=== PATIENT | female | born 1945 | race Caucasian/White ===

== ENCOUNTER 2019-05-19 19:31 | Observation (INO) | payer MEDICARE, SELFPAY ==
--- NOTE | ~2019-05-19 | CT_ITS ---
EXAMINATION: CT lumbar spine w con DATE: 05/21/2019 11:57 INDICATION: Back pain. Lower extremity weakness. TECHNIQUE: Computed tomography (CT) of the lumbar spine was performed with 100 mL Omnipaque 350 intra venous contrast. Automated exposure control and iterative reconstruction technique were employed. The dose-length product was 1073.47 mGy-cm. COMPARISON: CT lumbar spine 11/06/2018 FINDINGS: There are cysts in the kidneys measuring up to 3.6 cm on the left. There are epidural elect rodes in thoracic spine. There is 34 degrees dextroscoliosis of lumbar spine. There is bone cement in the bilateral sacral ala. There is 6 mm anterolisthesis of L5 on S1 and 3 mm anterolisthesis of L4 o n L5. There are changes of anterior and posterior fusion procedures at L5-S1 with interbody devices a nd pedicle screws. There are Schmorl's nodes at multiple levels. There is severely decreased disc hei ght at L1-L2, L3-L4, and L4-L5 and moderately decreased disc height at L2-L3. There are old fractures of the right 12th rib and right L2 and L3 transverse processes. The following disc levels are specif ically discussed: L1-L2: The disc is bulging. There is mild bilateral facet joint osteoarthritis. There is moderate rig ht and mild left neural foraminal stenosis. There is mild central canal stenosis. L2-L3: The disc is bulging. There is mild right and severe left facet joint osteoarthritis. There is mild right and moderate left neural foraminal stenosis. There is mild central canal stenosis. L3-L4: The disc is bulging. There is severe bilateral facet joint osteoarthritis. There is mild right and moderate left neural foraminal stenosis. There is mild central canal stenosis. L4-L5: The disc is bulging. There is severe bilateral facet joint osteoarthritis. There is moderate r ight and mild left neural foraminal stenosis. There is mild central canal stenosis. L5-S1: There is no facet joint hypertrophy. There is mild bilateral neural foraminal stenosis. There is no central canal stenosis. There are changes of L5 laminectomy. IMPRESSION: 1. Severe lumbar spondylosis. 2. Anterior and posterior fusion procedures at L5-S1. 3. Lumbar dextroscoliosis. Reviewed, dictated and finalized at location A. E VARIATION EQUIPMENT TENDER
--- NOTE | ~2019-05-19 | XR_ITS ---
XR chest 1V portable 05/19/2019 20:16 Indication: Cough. Midsternal chest pain. Procedure: AP view of the chest Comparison: 10/03/2018 Findings: Cardiomegaly. Irregular linear radiodensities are identified in both lungs, likely embolize d methyl methacrylate. No focal air space disease, pulmonary edema, pleural effusion or suspected pne umothorax. Spinal stimulator leads overlie the mid thorax. Impression: 1: No acute cardiopulmonary disease. Reviewed, dictated and finalized at location A. S LAYER Impression: 1: No acute cardiopulmonary disease.
--- NOTE | ~2019-05-19 | CT_ITS ---
EXAMINATION: CTA brain DATE: 05/21/2019 11:57 INDICATION: Cerebrovascular accident. TECHNIQUE: Computed tomographic angiography (CTA) of the head was performed without and with 100 mL O mnipaque-350 intravenous contrast. Automated exposure control and iterative reconstruction technique were employed. The dose-length product was 996.76 mGy-cm. Maximum intensity projection 3D reconstruc tions were created. Volume-rendered 3D reconstructions of the intracranial arteries were created by ld hidalgo technologist on a separate workstation. COMPARISON: Head CT 05/19/2019, 10/21/2018 FINDINGS: There are scattered areas of low attenuation in the cerebral white matter. There is an infa rct in the right thalamus. There is no intracranial hemorrhage or abnormal mass lesion. The ventricle s are normal in size. The paranasal sinuses are clear. There are likely changes of ocular lens replac ement surgeries. The mastoid air cells are normal. Left vertebral artery is dominant. There is no sig nificant stenosis of the basilar artery or posterior cerebral arteries. The posterior communicating a rteries are normal. There is no significant stenosis of the intracranial internal carotid arteries or anterior or middle cerebral arteries. Anterior communicating artery is normal. There is no aneurysm. IMPRESSION: 1. Age-indeterminate infarct in the right thalamus. 2. Moderate nonspecific cerebral white matter disease, which likely represents chronic small vessel i schemic disease. 3. No aneurysm or significant intracranial internal stenosis. Reviewed, dictated and finalized at location A. RLOCKING PAVEMENT INSTALLER IMPRESSION: 1. Age-indeterminate infarct in the right thalamus. 2. Moderate nonspecific cerebral white matter disease, which likely represents chronic small vessel ischemic disease. 3. No aneurysm or significant intracranial internal stenosis.
--- NOTE | ~2019-05-19 | CT_ITS ---
EXAMINATION: CT brain wo con DATE: 05/19/2019 20:05 INDICATION: Altered mental status TECHNIQUE: Computed tomography (CT) of the head was performed without intravenous contrast. The dose- length product was 605.33 mGy-cm. The mA was adjusted according to patient size. Iterative reconstruc tion technique was employed. COMPARISON: CT dated 10/21/2018 FINDINGS: Mild atrophy. There are scattered mild periventricular and subcortical white matter changes , most likely related to small vessel ischemic disease (microangiopathy). There is intracranial ather osclerosis. No ventriculomegaly or midline shift. Basilar cisterns are patent. No acute intracranial hemorrhage, infarction, mass or mass effect. There are changes of bilateral ocular lens surgery. IMPRESSION: 1. No acute intracranial abnormality. 2: Chronic age-related findings. Reviewed, dictated and finalized at location A. ENT PRESSER
--- NOTE | ~2019-05-19 | US_ITS ---
EXAMINATION: US carotid duplex BI DATE: 05/20/2019 08:30 INDICATION: Peripheral vascular disease. Weakness. TECHNIQUE: Grayscale, color Doppler, and pulsed Doppler images of the cervical carotid arteries were obtained. The degree of vessel stenosis is placed in one of the following categories: normal, <50%, 5 0-69%, >=70% but less than near-occlusion, near-occlusion, or total occlusion. Note that percent sten osis relative to normal distal artery lumen diameter is indirectly measured from velocity measurement s as described by Richi, et al. Radiology 2003; 229:340-346. Notes: Normal: Peak systolic velocity <125 centimeters/sec and no plaque <50%. Peak systolic velocity <125 ( EDV <40; ICA/CCA PSV ratio <2.0; used these factors only a tandem lesions or low cardiac output or co ntralateral disease) 50-69 %: PSV 125-230 (EDV 40-100; ratio 2-4) >= 70% but less than near occlusion: PSV greater than 230 (EDV > 100; ratio> 4.0) Near Occlusion: PSV that is variable; markedly narrowed lumen Occlusion: Absent flow on color/spectral Doppler and no lumen on donis scale. COMPARISON: None. FINDINGS: RIGHT: The right common carotid artery (CCA) peak systolic velocity (PSV) is 93 cm/s. The right internal car otid artery (ICA) PSV is 69 cm/s. The right ICA end-diastolic velocity (EDV) is 12 cm/s. The right IC A/CCA PSV ratio is 0.7. The external carotid artery (ECA) PSV is 94 cm/s. There is antegrade flow in the right vertebral artery. LEFT: The left CCA PSV is 91 cm/s. The left ICA PSV is 116 cm/s. The left ICA EDV is 22 cm/s. The left ICA/ CCA PSV ratio is 1.3. The ECA PSV is 216 cm/s. There is antegrade flow in the left vertebral artery. IMPRESSION: 1. Less than 50% stenosis in the right internal carotid artery by sonographic criteria. 2. Less than 50% stenosis in the left internal carotid artery by sonographic criteria. Reviewed, dictated and finalized at location A. NE TUTOR IMPRESSION: 1. Less than 50% stenosis in the right internal carotid artery by sonographic mackenzie villarreal. 2. Less than 50% stenosis in the left internal carotid artery by sonographic isaura abrams.
[2019-05-19 19:34] VITALS: BP 131/61; PULSE 69; RESP 20; TEMP 36.5; O2SAT 100
[2019-05-19 19:44] VITALS: PULSE 67; RESP 25; TEMP 37.2; O2SAT 98
--- NOTE | 2019-05-19 19:47 | ED.WEAKNESS ---
HPI - Weakness General Chief complaint: Weakness Stated complaint: B/L leg pain, PETERSON, possible dehydration Time Seen by Provider: 05/19/19 19:47 Source: patient and family (son) Mode of arrival: ambulatory Limitations: no limitations History of Present Illness HPI Narrative: A 73 y/o female presents to the ED with c/o generalized weakness that is worse on her right side since this morning. Pt notes that she was recently sick with rhinorrhea, a sore throat, and a cough. Per son, he went to go check on the pt today after she did not show up to a family event. Pt could hardly walk with her walker which isn't normal for her and the pt had slurred speech. Pt's son is also concerned that the pt is dehydrated and notes that she is on pain management for chronic back pain. She reports intermittent CP, SOB, and smoking, but denies a fever. Onset (ago): hour(s) Location: generalized and other (worse on the right) Related Data Home Medications Medication Instructions Recorded Confirmed furosemide 40 mg PO DAILY 05/19/19 05/19/19 gabapentin 300 mg PO BID 05/19/19 05/19/19 losartan 25 mg PO DAILY 05/19/19 05/19/19 oxycodone 15 mg PO Q4-5H PRN 05/19/19 05/19/19 ropinirole 1 mg PO DAILY 05/19/19 05/19/19 ropinirole 2 mg PO HS 05/19/19 05/19/19 temazepam 15 mg PO HS PRN 05/19/19 05/19/19 Allergies Allergy/AdvReac Type Severity Reaction Status Date / Time Penicillins Allergy Unknown Verified 04/13/10 13:14 Review of Systems Review of Systems: All systems reviewed & are unremarkable except as noted in HPI and below Constitutional: Constitutional: Denies fever(s) ENT: Reports sore throat Comments: Reports: rhinorrhea Cardiovascular: Cardiovascular: Reports chest pain (intermittent) Respiratory: Respiratory: Reports cough and Reports dyspnea Neurologic: Reports weakness (generalized, worse on the right) Comments: Reports: slurred speech [facility] Past Medical History Medical History (Updated 05/20/19 @ 01:14 by Wilfredo Taylor DO) Anxiety Arthritis Chronic narcotic dependence Chronic pain syndrome Secondary to degenerative disc disease and spinal stenosis. DDD (degenerative disc disease) HTN (hypertension) IBS (irritable bowel syndrome) Right carpal tunnel syndrome RLS (restless legs syndrome) Tobacco dependence Ulcer Surgical History Surgical History H/O section H/O foot surgery right x2 History of appendectomy History of cholecystectomy History of hysterectomy History of tonsillectomy Previous back surgery x2, lumbar area Family History Family History (Updated 05/19/19 @ 22:54 by Catherine Mccauley PA-C) Mother Ulcerative colitis Social History Social History (Updated 05/19/19 @ 22:55 by Catherine Mccauley PA-C) Social History: Patient lives in her own apartment [place]. She ambulates with a walker. Her primary care prior to Dr. Armond Cordero. She designates her Jesus, Jesus, as her surrogate decision-maker. She is listed as a full code. She smokes 1/2 pack of cigarettes per day. She has alcohol maybe every few months and in moderation. No drug use. Smoking packs per day: 1.5 Smoking cigarettes per day: 30.0 Smoking status: Current every day smoker Tobacco type: cigarettes Alcohol intake: unknown Drinks per week: 0 Substance use: never Substance use type: does not use Gender identity (if verbalized by the patient): Female Spiritual care concerns: No Agree to blood products: Yes Comments PSHx: neuro-stimulator implant No PCP on file. Exam Narrative: Exam Narrative: APPEARANCE: No acute distress, nontoxic, resting in bed HEENT: Normocephalic, atraumatic, OMM, TMs clear bilaterally EYES: PERRL, EOMI NECK: Supple, nontender, full range of motion without pain, no meningismus RESPIRATORY: No respiratory distress, clear to auscultation bilaterally with no rhonchi wheezing or rales CARDI[facility]
--- NOTE | 2019-05-19 19:50 | ECG_ITS ---
Measurements Intervals [place] Rate: 65 P: 195 IN: 365 QRS: -8 QRSD: 99 T: 45 QT: 419 QTc: 436 Interpretive Statements SINUS RHYTHM BORDERLINE AV CONDUCTION DELAY DELAYED PRECORDIAL R/S TRANSITION BORDERLINE ST ABNORMALITY- LATERAL LEADS BASELINE ARTIFACT- I, III, V4-V5 BORDERLINE ECG Electronically Signed On 05-20-2019 7:11:12 DRAMATIC AGENT by Zhao Camejo D.O.
[2019-05-19 20:21] LABS: Glucose Point of Care 89 (65-105)
[2019-05-19] MEDS: SODIUM CHLORIDE 0.9% IV 1,000 ML 999 ML IV CONT (20:24)
[2019-05-19 20:38] LABS: Basophils Absolute Auto 0.1 K/mm3 (0.0-0.1); Basophils Percent Auto 0.6 % (0.2-1.2); Eosinophils Absolute Auto 0.2 K/mm3 (0-0.3); Eosinophils Percent Auto 2.4 % (0-4.4); Hematocrit 42.3 % (37.0-47.0); Hemoglobin 13.3 g/dL (12.0-15.0); Immature Granulocyte Absolute 0.04 K/mm3 (0.00-0.031); Immature Granulocyte Percent A 0.4 % (0-0.5); Lymphocytes Absolute Auto 2.41 K/mm3 (0.9-3.2); Lymphocytes Percent Auto 25.9 % (18.3-44.2); Mean Corpuscular HGB Conc 31.4 g/dl (32-36); Mean Corpuscular Hemoglobin 30.5 pg (26-34); Mean Platelet Volume 9.5 fl (7.4-10.4); Monocytes Absolute Auto 0.7 K/mm3 (0.1-0.6); Neutrophils Absolute Auto 5.9 K/mm3 (1.3-6.7); Neutrophils Percent Auto 63.7 % (45.5-73.1); Platelet Count Result 233 k/mm3 (150-375); Red Blood Count 4.36 M/mm3 (4.2-5.4); Red Cell Distribution Width 12.7 % (11.5-14.5); White Blood Count 9.3 K/mm3 (4.5-10.0)
[2019-05-19 20:48] LABS: Prothrombin Time 13.1 Seconds (11.1-14.7)
[2019-05-19 20:49] LABS: Partial Thromboplastin Time 41.8 SECONDS (22.3-36.8)
[2019-05-19 20:50] LABS: Lactic Acid Reflex 1.9 mmol/L (0.7-2.1)
[2019-05-19 20:51] LABS: Alanine Aminotransferase 25 U/L (4-35); Albumin Level 3.6 g/dL (3.5-5.1); Alkaline Phosphatase 81 U/L (38-126); Aspartate Amino Transferase 56 U/L (14-36); Bilirubin,Total 0.6 mg/dL (0.2-1.3); Blood Urea Nitrogen 10 mg/dL (7-17); Calcium 9.2 mg/dL (8.4-10.2); Carbon Dioxide 28 mmol/L (22-30); Chloride 102 mmol/L (98-107); Estimated CRCL calculation 54 ml/min; Estimated Glomerular Filt Rate > 60; Glucose 93 mg/dL (65-105); Potassium 3.8 mmol/L (3.4-5.0); Sodium 139 mmol/L (137-145)
[2019-05-19 20:55] LABS: Lipase < 10 U/L (23-300)
[2019-05-19 21:02] LABS: Troponin I < 0.012 ng/mL (0.000-0.034)
[2019-05-19 21:38] LABS: Add Urine Microscopic? NO; Appearance Urine Clear (Clear); Bilirubin Urine Negative (Negative); Blood Urine Negative (Negative); Color Urine Yellow (Yellow); Glucose Urine UA Negative (Negative); Ketones Urine Negative (Negative); Leukocyte Esterase Ur Negative LEU/UL (Negative); Nitrate Urine Negative (Negative); Protein Urine Negative (Negative); Urobilinogen Urine Negative mg/dL (<2.0)
[2019-05-19] MEDS: ASPIRIN 81 MG CHEWABLE TABLET 324 MG PO (22:44)
--- NOTE | 2019-05-19 22:45 | PM.IMHP ---
H&P: HPI History of Present Illness Chief complaint: Weakness. Narrative: Liza Cardona is a 73-year-old female with chronic pain syndrome on long-term narcotics who presented to the emergency department earlier this evening for evaluation of weakness. She was supposed to go to her great granddaughter's birthday green party today, but never showed up. Family members went to check on her, and it took her between 5 to 10 minutes to ambulate around her small apartment to answer the door. Family members assumed that she had recently taken her pain medications and that she would sleep it off, so they left her be. When they came to check up on her again about 3 hours thereafter, she was still very weak and was complaining of her legs not working. Patient tells me that she got up this morning, was unable to get out of bed due to weakness in both legs, so she stayed in bed all day. She denies taking any more medications than what are prescribed, and has not had any recent change in medications. At the time of my evaluation, she appears to have a mild right-sided facial droop and family members also feel that way. Other than a mild headache, she has no other complaints at this time. She denies vertigo, auditory visual changes, focal weakness, and paresthesias. No chest pain or palpitations. She has no history of cardiac dysrhythmia. No history of CVA. She has not had any falls. No bowel or bladder incontinence. No saddle anesthesia. Review of Systems Review of Systems: Narrative: 12 systems were reviewed with pertinent positives and negatives as per HPI. No fever, chills, or sweats. No cold or flu symptoms. She has had dysphasia on occasion, mainly with meats. She denies concerns for aspiration. She has not had shortness of breath. She has frequent lower extremity edema, that varies, and this is unchanged. No history of venous thromboembolism.She does have constipation due to her chronic pain medications. No nausea or vomiting. Except as documented, all other systems were reviewed and are negative. [facility] Past Medical History Medical History (Updated 05/19/19 @ 23:09 by Catherine Mccauley PA-C) Anxiety Arthritis Chronic narcotic dependence Chronic pain syndrome Secondary to degenerative disc disease and spinal stenosis. DDD (degenerative disc disease) HTN (hypertension) IBS (irritable bowel syndrome) Right carpal tunnel syndrome RLS (restless legs syndrome) Tobacco dependence Ulcer Surgical History Surgical History H/O section H/O foot surgery right x2 History of appendectomy History of cholecystectomy History of hysterectomy History of tonsillectomy Previous back surgery x2, lumbar area Family History Family History (Updated 05/19/19 @ 22:54 by Catherine Mccauley PA-C) Mother Ulcerative colitis Social History Social History (Updated 05/19/19 @ 22:55 by Catherine Mccauley PA-C) Social History: Patient lives in her own apartment [place]. She ambulates with a walker. Her primary care prior to Dr. Armond Cordero. She designates her JesusJesus, as her surrogate decision-maker. She is listed as a full code. She smokes 1/2 pack of cigarettes per day. She has alcohol maybe every few months and in moderation. No drug use. Meds Home Medications and Allergies Home Medications Medication Instructions Recorded Confirmed Type alprazolam 0.5 mg tablet 0.5 mg PO TID PRN #30 tablet 05/14/19 Rx temazepam 15 mg capsule 15 mg PO ONCE PRN #30 cap 05/14/19 Rx Allergies Allergy/AdvReac Type Severity Reaction Status Date / Time Penicillins Allergy Unknown Verified 04/13/10 13:14 Vital Signs Vital Signs - 24 hr 05/19/19 19:34 05/19/19 19:44 Temperature 97.7 F 98.9 F Pulse Rate 69 67 Respiratory Rate 20 25 H Blood Pressure 131/61 Pulse Oximetry 100 98 Exam Narrative: Exam Narrative: General: A well-developed, well-nou
[2019-05-19 23:07] VITALS: BP 136/62; PULSE 66; RESP 20; TEMP 36.2; O2SAT 97; BMI 29.5
[2019-05-19 23:14] VITALS: BP 127/66; PULSE 63; RESP 16; O2SAT 98
--- NOTE | 2019-05-19 23:27 | PC.NURSE ---
This patient, Liza Cardona, was admitted to 2 [address] 2325. Patient/family oriented to hospital policies and general routines including ID bracelet, bed and alarms, visiting hours, pain management, procedures, bathroom and other care routines, personal items, smoking policy, room service/diet, and visiting hours. Valuables list has been completed. Information on how to activate the Rapid Response Team has been discussed. Patient/Family are encouraged to report perceived risks to care and to ask questions if they do not understand what they are told or what they should do.
[2019-05-20] VITALS (11 sets, daily range): BP systolic 100–110; BP diastolic 46–57; PULSE 60–72; RESP 16–20; TEMP 36.4–36.7; O2SAT 95–97
[2019-05-20 01:11] LABS: Troponin I < 0.012 ng/mL (0.000-0.034)
[2019-05-20] MEDS: GABAPENTIN 300 MG CAPSULE PO ×2 (01:24→21:57)
[2019-05-20] MEDS: TEMAZEPAM 15 MG CAPSULE PO (01:24)
[2019-05-20 03:35] LABS: Basophils Absolute Auto 0.1 K/mm3 (0.0-0.1); Basophils Percent Auto 0.8 % (0.2-1.2); Eosinophils Absolute Auto 0.2 K/mm3 (0-0.3); Hematocrit 38.1 % (37.0-47.0); Hemoglobin 12.3 g/dL (12.0-15.0); Immature Granulocyte Absolute 0.02 K/mm3 (0.00-0.031); Immature Granulocyte Percent A 0.3 % (0-0.5); Lymphocytes Absolute Auto 2.42 K/mm3 (0.9-3.2); Lymphocytes Percent Auto 31.7 % (18.3-44.2); Mean Corpuscular HGB Conc 32.3 g/dl (32-36); Mean Corpuscular Hemoglobin 30.8 pg (26-34); Mean Corpuscular Volume 95.5 fl (80-100); Mean Platelet Volume 9.4 fl (7.4-10.4); Monocytes Absolute Auto 0.7 K/mm3 (0.1-0.6); Monocytes Percent Auto 8.7 % (2.6-8.5); Neutrophils Absolute Auto 4.2 K/mm3 (1.3-6.7); Neutrophils Percent Auto 55.5 % (45.5-73.1); Platelet Count Result 215 k/mm3 (150-375); Red Blood Count 3.99 M/mm3 (4.2-5.4); Red Cell Distribution Width 12.7 % (11.5-14.5); White Blood Count 7.6 K/mm3 (4.5-10.0)
[2019-05-20 03:50] LABS: Blood Urea Nitrogen 8 mg/dL (7-17); Calcium 8.7 mg/dL (8.4-10.2); Carbon Dioxide 29 mmol/L (22-30); Chloride 109 mmol/L (98-107); Cholesterol 106 mg/dL (0-200); Estimated CRCL calculation 56 ml/min; Estimated Glomerular Filt Rate > 60; Glucose 110 mg/dL (65-105); HDL Direct 44 mg/dL; Potassium 3.6 mmol/L (3.4-5.0); Sodium 140 mmol/L (137-145); Triglycerides 74 mg/dL (<150)
[2019-05-20 04:01] LABS: LDL Cholesterol Direct 52 mg/dL
[2019-05-20 04:02] LABS: Troponin I < 0.012 ng/mL (0.000-0.034)
[2019-05-20] MEDS: FUROSEMIDE 40 MG TABLET PO (08:17)
[2019-05-20] MEDS: LOSARTAN POTASSIUM 25 MG TABLET PO (08:17)
[2019-05-20] MEDS: ASPIRIN 81 MG ENTERIC TABLET PO (08:17)
[2019-05-20 10:20] LABS: Magnesium 1.7 mg/dL (1.6-2.3)
--- NOTE | 2019-05-20 11:50 | PM.CNCAR ---
Assessment and Plan Assessment and plan (1) Tobacco dependence: Code(s): F17.200 - Nicotine dependence, unspecified, uncomplicated Status: Acute (2) HTN (hypertension): Code(s): I10 - Essential (primary) hypertension Status: Acute Assessment and Plan: Pressure is well controlled now she is currently on losartan and Lasix (3) Chronic narcotic dependence: Code(s): F11.20 - Opioid dependence, uncomplicated Status: Acute (4) Generalized weakness: Code(s): R53.1 - Weakness Status: Acute (5) Bradycardia: Code(s): R00.1 - Bradycardia, unspecified Status: Acute Assessment and Plan: She has significant bradycardia but that does not seem to be symptomatic, heart rate picked up by moving her lower extremities, indicating that she has good sinus response. At this time no indication for pacemaker, she is not on any medication that could be causing bradycardia other than narcotics which is if overdosed would cause bradycardia, would avoid overdosing on narcotics and follow-up heart rate closely. She would need to have outpatient follow-up with continuous monitoring on her heart rate to consider further and workup as indicated. For the time being she is okay to be discharged home from that point of view as long as she has a follow-up Additional Plan Thank you for allowing me to participate in this patient's care, I will be following up with you. Please do not hesitate to call me for any other inquiry History of Present Illness History of Present Illness Consult date/time: 05/20/19 11:50 73 years old lady with history of hypertension, history of COPD, and history of smoking with history of chronic back pain was admitted to the hospital because of leg weakness, noted to have significant bradycardia with heart rate as low as 42. She had no long pause but she had sinus bradycardia with heart rates 40 to she gets occasional PVCs. With that he is not symptomatic with dizziness or lightheadedness no history of syncope but she feels weak all over. No history of cardiac arrhythmia, she is not on any medications that could be causing that except for pain medications, which could sometimes if she over does could cause bradycardia, I had removed her feet and heart rate picked up okay. No chest pain she has [id number] shortness breath on mild orthopnea mild leg swelling Reason For Visit: Weakness. Review of Systems Constitutional: Constitutional: Reports fatigue, Reports lethargy and Reports weakness Cardiovascular: Cardiovascular: Reports as per HPI, Reports pedal edema and Reports leg edema Respiratory: Respiratory: Reports dyspnea on exertion PMFSH Past Medical History Medical History Anxiety Arthritis Chronic narcotic dependence Chronic pain syndrome Secondary to degenerative disc disease and spinal stenosis. DDD (degenerative disc disease) HTN (hypertension) IBS (irritable bowel syndrome) Right carpal tunnel syndrome RLS (restless legs syndrome) Tobacco dependence Ulcer Surgical History Surgical History H/O section H/O foot surgery right x2 History of appendectomy History of cholecystectomy History of hysterectomy History of tonsillectomy Previous back surgery x2, lumbar area Family History Family History Mother Ulcerative colitis Social History Social History Social History: Patient lives in her own apartment [place]. She ambulates with a walker. Her primary care prior to Dr. Armond Cordero. She designates her Jesus, Jesus, as her surrogate decision-maker. She is listed as a full code. She smokes 1/2 pack of cigarettes per day. She has alcohol maybe every few months and in moderation. No drug use. Smoking packs per day:
--- NOTE | 2019-05-20 12:14 | PCSTNOTE ---
Please refer to the Bedside Swallow Evaluation in the EMR.
--- NOTE | 2019-05-20 14:22 | PM.IMPN ---
Progress Note: A&P Assessment and Plan (1) Neurological symptoms: Code(s): R29.90 - Unspecified symptoms and signs involving the nervous system Status: Acute Assessment and Plan: Including generalized weakness, mild right facial droop, and slurred speech. Differential diagnosis includes TIA versus CVA versus medication effect. She will be monitored on telemetry. Brain MRI, echocardiogram, carotid Doppler ultrasounds ordered for tomorrow. Neurologic checks every 4 hours. 05/20/19 14:22 Patient is 73-year-old female history of chronic pain status post spinal surgery and has a neurotransmitter planted in the back, yesterday patient family went to visit her and she was in pain had a difficulty time ambulating any to go more than 10 minutes to answer her door and patient was moving slow with baby stable and complaining that her legs are not working C cannot walk, patient denies any trauma or injury patient denies any new numbness weakness other than her baseline, patient states see been taking her medication as given see did not taking x-ray does, currently patient family is present in the room they believe sees her baseline mentally, however they are concerned her decrease in and immobility emergency department patient had a CT scan of the head did not show any acute injury and patient cannot have MRI because of the implant in her spine, will order CTA of the head to further evaluate any acute injury, will also order CT scan of the lumbar spine to further evaluate implant in her back if necessary communicate with her spinal surgeon, bilateral carotid ultrasounds did not show any stenosis, cardiac echo is pending will have a PT OT evaluate the patient and further recommendation to follow (2) Generalized weakness: Code(s): R53.1 - Weakness Status: Acute Assessment and Plan: Plan as detailed above. Initiate fall precautions. (3) Chronic narcotic dependence: Code(s): F11.20 - Opioid dependence, uncomplicated Status: Acute Assessment and Plan: Consider holding narcotics this evening. (4) HTN (hypertension): Code(s): I10 - Essential (primary) hypertension Status: Acute Assessment and Plan: Blood pressures were reviewed and they are well controlled. Her home medications will be reviewed and resumed as appropriate. (5) Tobacco dependence: Code(s): F17.200 - Nicotine dependence, unspecified, uncomplicated Status: Acute Assessment and Plan: Smoking cessation is encouraged. Subjective Date/time seen: 05/20/19 14:22 Patient is 73-year-old female history of chronic pain status post spinal surgery and has a neurotransmitter planted in the back, yesterday patient family went to visit her and she was in pain had a difficulty time ambulating any to go more than 10 minutes to answer her door and patient was moving slow with baby stable and complaining that her legs are not working C cannot walk, patient denies any trauma or injury patient denies any new numbness weakness other than her baseline, patient states see been taking her medication as given see did not taking x-ray does, currently patient family is present in the room they believe sees her baseline mentally, however they are concerned her decrease in and immobility emergency department patient had a CT scan of the head did not show any acute injury and patient cannot have MRI because of the implant in her spine, will order CTA of the head to further evaluate any acute injury, will also order CT scan of the lumbar spine to further evaluate implant in her back if necessary communicate with her spinal surgeon, bilateral carotid ultrasounds did not show any stenosis, cardiac echo is pending will have a PT OT evaluate the patient and further recommendation to follow Review of Systems Review of Systems: All systems reviewed & are unremarkable except as noted in HPI and below Exam Narrati
--- NOTE | 2019-05-20 15:00 | PC.NURSE ---
Notified by family of patient having changes in LOC. Concerned that patient had home supply of pain meds with her since they were unable to find them at her home. Son found patient's home supply of xanax, oxycodone, and temazepam in the patient's purse and brought to nurses station. Pills counted and verified by two RNs and locked in safe. Took patients vitals, which were stable. Patient was alert x3 but very sleepy. Informed Dr Alston of the situation. The patient stated I only took my nerve pill and my leg pill. I asked the patient if she had taken any xanax or oxycodone and the patient said I dont have those pills with me, I swear. I informed the patient that we do have her home supply of oxycodone and her pill bottles have been counted and locked in our safe. Patient became very tearful. Will continue to closely monitor.
[2019-05-21] VITALS: PULSE 61
--- NOTE | 2019-05-21 | ECHO_ITS ---
Patient Info Name: Liza Cardona Age: 73 years : 1945 Gender: Female Ht: 62 in Wt: 161 lbs BSA: 1.81 m2 HR: 62 bpm BP: 102 / 77 mmHg Technical Quality: Good Exam Date: 05/21/2019 8:26 AM Exam Location: [facility] Pulmonary Patient Status: Outpatient Admit Date: 05/19/2019 Staff Ordering Physician: Catheirne Mccauley PA-C Corporate Safety Director: Ashley Celeste RDCS Attending Provider: Dali Hdez DO Referring Physician: Parisa EUCEDA; Exam Type: CA echo doppler color flow Study Info Indications I10 - Essential (primary) hypertension Complete two-dimensional, color flow and Doppler transthoracic echocardiogram is performed. Summary 1. Left ventricular systolic function is normal, estimated at 55-60%. 2. Left ventricular septal wall motion is abnormal with septal motion related to bundle branch block. Left Ventricle Left ventricular chamber dimension is normal. Left ventricular systolic function is normal, estimated at 55-60%. There is no increased left ventricular wall thickness. Left ventricular septal wall motion is abnormal with septal motion related to bundle branch block. The left ventricular diastolic function is normal. Right Ventricle Right ventricular chamber dimension is normal. Right ventricular systolic function is normal. Left Atria Left atrial chamber dimension is normal. Right Atria Right atrial chamber dimension is normal. Aortic Valve The aortic valve is trileaflet. There is no aortic valve sclerosis. There is no aortic valve stenosis. There is no aortic valve regurgitation. Pulmonic Valve The pulmonic valve is normal. There is no pulmonic valve stenosis. There is no pulmonic regurgitation. Mitral Valve The mitral valve has normal leaflets. There is no mitral valve stenosis. There is trace mitral valve regurgitation. Tricuspid Valve The tricuspid valve leaflets are normal. There is no significant tricuspid valve stenosis. There is trace tricuspid valve regurgitation. No pulmonary hypertension, estimated pulmonary arterial systolic pressure is 34 mmHg. Pericardium/Pleural The pericardium appears normal. There is no pericardial effusion. Aorta The aortic root size at the sinus of Valsalva is normal. The prox ascending aorta size is normal. Left Ventricular Outflow Tract Name Value Normal LVOT 2D LVOT Diameter 2.0 cm LVOT Doppler LVOT Peak Gradient 5 mmHg LVOT Mean Gradient 3 mmHg LVOT VTI 32 cm LVOT VTI/AV VTI Ratio 0.9 LVOT Stroke Volume 100 ml LVOT CO 5.8 l/min LVOT CI 3.2 l/min/m2 Pulmonic Valve Name Value Normal RVOT Doppler RVOT Peak Gradient 2 mmHg
[2019-05-21 04:00] VITALS: PULSE 57
[2019-05-21 06:00] VITALS: BP 102/77; PULSE 62; RESP 18; TEMP 36.3; O2SAT 96
[2019-05-21 06:04] LABS: Hematocrit 38.5 % (37.0-47.0); Hemoglobin 12.6 g/dL (12.0-15.0); Mean Corpuscular HGB Conc 32.7 g/dl (32-36); Mean Corpuscular Volume 94.8 fl (80-100); Mean Platelet Volume 9.8 fl (7.4-10.4); Platelet Count Result 221 k/mm3 (150-375); Red Blood Count 4.06 M/mm3 (4.2-5.4); Red Cell Distribution Width 12.7 % (11.5-14.5); White Blood Count 7.4 K/mm3 (4.5-10.0)
--- NOTE | 2019-05-21 06:11 | PC.NURSE ---
pt bradycardic throughout most of the shift but dipped down in the forties around 0550 through 0615. Pt not symptomatic and vitals stable. Dr. Hdez made aware. Cardiology already following pt. Will continue to monitor.
[2019-05-21 06:23] LABS: Blood Urea Nitrogen 7 mg/dL (7-17); Calcium 8.8 mg/dL (8.4-10.2); Carbon Dioxide 28 mmol/L (22-30); Chloride 105 mmol/L (98-107); Estimated CRCL calculation 65 ml/min; Estimated Glomerular Filt Rate > 60; Glucose 93 mg/dL (65-105); Potassium 3.5 mmol/L (3.4-5.0); Sodium 139 mmol/L (137-145)
[2019-05-21 08:00] VITALS: PULSE 64
[2019-05-21] MEDS: POTASSIUM CHLORIDE 20 MEQ PACKET (FOR LIQUID) 40 MEQ PO (09:21)
[2019-05-21] MEDS: FUROSEMIDE 40 MG TABLET PO (09:21)
[2019-05-21] MEDS: LOSARTAN POTASSIUM 25 MG TABLET PO (09:21)
[2019-05-21] MEDS: MAGNESIUM OXIDE 400 MG TABLET PO (09:21)
[2019-05-21] MEDS: ASPIRIN 81 MG ENTERIC TABLET PO (09:22)
[2019-05-21] MEDS: GABAPENTIN 300 MG CAPSULE PO (09:22)
[2019-05-21 12:00] VITALS: PULSE 55
[2019-05-21] MEDS: ALPRAZOLAM 0.5 MG TABLET PO (13:33)
[2019-05-21 14:11] VITALS: BMI 29.5
--- NOTE | 2019-05-21 16:20 | PM.DS ---
DS: Diagnosis Admitting Diagnosis Admitting Diagnosis: Unspecified symptoms and signs involving the nervous system Discharge Diagnosis (1) Neurological symptoms: Code(s): R29.90 - Unspecified symptoms and signs involving the nervous system Status: Acute Assessment and Plan: Including generalized weakness, mild right facial droop, and slurred speech. Differential diagnosis includes TIA versus CVA versus medication effect. She will be monitored on telemetry. Brain MRI, echocardiogram, carotid Doppler ultrasounds ordered for tomorrow. Neurologic checks every 4 hours. 05/20/19 14:22 Patient is 73-year-old female history of chronic pain status post spinal surgery and has a neurotransmitter planted in the back, yesterday patient family went to visit her and she was in pain had a difficulty time ambulating any to go more than 10 minutes to answer her door and patient was moving slow with baby stable and complaining that her legs are not working C cannot walk, patient denies any trauma or injury patient denies any new numbness weakness other than her baseline, patient states see been taking her medication as given see did not taking x-ray does, currently patient family is present in the room they believe sees her baseline mentally, however they are concerned her decrease in and immobility emergency department patient had a CT scan of the head did not show any acute injury and patient cannot have MRI because of the implant in her spine, will order CTA of the head to further evaluate any acute injury, will also order CT scan of the lumbar spine to further evaluate implant in her back if necessary communicate with her spinal surgeon, bilateral carotid ultrasounds did not show any stenosis, cardiac echo is pending will have a PT OT evaluate the patient and further recommendation to follow (2) Generalized weakness: Code(s): R53.1 - Weakness Status: Acute Assessment and Plan: Plan as detailed above. Initiate fall precautions. (3) Chronic narcotic dependence: Code(s): F11.20 - Opioid dependence, uncomplicated Status: Acute Assessment and Plan: Consider holding narcotics this evening. (4) HTN (hypertension): Code(s): I10 - Essential (primary) hypertension Status: Acute Assessment and Plan: Blood pressures were reviewed and they are well controlled. Her home medications will be reviewed and resumed as appropriate. (5) Tobacco dependence: Code(s): F17.200 - Nicotine dependence, unspecified, uncomplicated Status: Acute Assessment and Plan: Smoking cessation is encouraged. DS: Summary Hospital Course Reason for hospitalization: Liza Cardona is a 73-year-old female with chronic pain syndrome on long-term narcotics who presented to the emergency department earlier this evening for evaluation of weakness. She was supposed to go to her great granddaughter's birthday alliance party today, but never showed up. Family members went to check on her, and it took her between 5 to 10 minutes to ambulate around her small apartment to answer the door. Family members assumed that she had recently taken her pain medications and that she would sleep it off, so they left her be. When they came to check up on her again about 3 hours thereafter, she was still very weak and was complaining of her legs not working. Patient tells me that she got up this morning, was unable to get out of bed due to weakness in both legs, so she stayed in bed all day. She denies taking any more medications than what are prescribed, and has not had any recent change in medications. At the time of my evaluation, she appears to have a mild right-sided facial droop and family members also feel that way. Other than a mild headache, she has no other complaints at this time. She denies vertigo, auditory visual changes, focal weakness, and paresthesias. No chest pain or palpitations. She
--- NOTE | 2019-05-21 16:39 | PM.PNCARD ---
Progress Note: A&P Assessment and Plan (1) Tobacco dependence: Code(s): F17.200 - Nicotine dependence, unspecified, uncomplicated Status: Acute (2) HTN (hypertension): Code(s): I10 - Essential (primary) hypertension Status: Acute Assessment and Plan: Pressure is well controlled now she is currently on losartan and Lasix (3) Chronic narcotic dependence: Code(s): F11.20 - Opioid dependence, uncomplicated Status: Acute (4) Generalized weakness: Code(s): R53.1 - Weakness Status: Acute (5) Bradycardia: Code(s): R00.1 - Bradycardia, unspecified Status: Acute Assessment and Plan: She has significant bradycardia but that does not seem to be symptomatic, heart rate picked up by moving her lower extremities, indicating that she has good sinus response. At this time no indication for pacemaker, she is not on any medication that could be causing bradycardia other than narcotics which is if overdosed would cause bradycardia, would avoid overdosing on narcotics and follow-up heart rate closely. She would need to have outpatient follow-up with continuous monitoring on her heart rate to consider further and workup as indicated. For the time being she is okay to be discharged home from that point of view as long as she has a follow-up Additional Plan She is okay to be discharged home, has lost she has follow-up with us as an outpatient Subjective Date/time seen: 05/21/19 16:39 She seems to be better today, no more bradycardia, current heart rate is 72. Exam Narrative: Exam Narrative: Awake alert oriented x3 not in acute distress Neck is supple no obvious JVD, no carotid bruit Chest: Good air entry bilaterally, lungs are clear to auscultation and percussion bilaterally Cardiovascular: Regular rate and rhythm, 2/6 systolic murmur noted left sternal border Abdomen: Soft nontender bowel sounds positive Extremities: No edema has good pulses distally bilaterally Objective Data Vital Signs Vital Signs: Vital Signs - 24 hr 05/20/19 17:35 05/20/19 20:00 05/20/19 22:00 Temperature 36.7 C 36.4 C L Pulse Rate 60 64 62 Respiratory Rate 16 16 Blood Pressure 100/46 L 104/51 L Pulse Oximetry 97 97 05/21/19 00:00 05/21/19 04:00 05/21/19 06:00 Temperature 36.3 C L Pulse Rate 61 57 L 62 Respiratory Rate 18 Blood Pressure 102/77 Pulse Oximetry 96 05/21/19 08:00 05/21/19 12:00 Temperature Pulse Rate 64 55 L Respiratory Rate Blood Pressure Pulse Oximetry Intake/Output Intake/Output: Intake & Output 05/18/19 05/19/19 05/20/19 05/21/19 23:59 23:59 23:59 23:59 Intake Total 1000 1585 150 Output Total 1300 850 Balance 1000 285 -700 Meds/Results Medications: Active Medications Generic Name Dose Route Start Last Admin Trade Name Freq PRN Reason Stop Dose Admin Alprazolam 0.5 mg 05/21/19 09:32 05/21/19 13:33 Xanax PO 0.5 mg TID PRN Administration Anxiety Aspirin 81 mg 05/20/19 09:00 05/21/19 09:22 Aspirin Ec PO 81 mg QAM LORENZO Administration Furosemide 40 mg 05/20/19 09:00 05/21/19 09:21 Lasix Tablet PO 40 mg DAILY LORENZO Administration Gabapentin 300 mg 05/20/19 22:00 05/21/19 09:22 Neurontin PO 300 mg Q12HR LORENZO Administration Losartan Potassium 25 mg 05/20/19 09:00 05/21/19 09:21 Cozaar PO 25 mg DAILY LORENZO Administration Magnesium Oxide 400 mg 05/21/19 09:00 05/21/19 09:21 Mag-Ox PO 400 mg QAM LORENZO Administration Oxycodone HCl 15 mg 05/21/19 09:43 05/21/19 14:33 Roxicodone Ir Tablet PO 15 mg Q4HR PRN Administration Pain Rated 7-10 Ropinirole HCl 2 mg 05/20/19 21:00 05/20/19 21:57 Requip PO 2 mg HS LORENZO Administration Ropinirole HCl 0.5 mg 05/20/19 21:00 05/20/19 22:06 Ropinirole Hcl PO Not Given HS LORENZO Radiology Results: ITS Impressions Head CT 05/19/19 20:06 IMPRESSION: 1. No acute intracranial ab
== END 2019-05-21 17:24 | disposition home health service (06) ==
LOC: ANHED 22:13 → ANH2MED 22:22
PROVIDERS: Admitting Provider Internal Medicine; Emergency Provider Emergency Medicine; PCP Emergency Medicine; Visit Provider Family Medicine
DX: R29.818 Other symptoms and signs involving the nervous system (principal); R53.1 Weakness; R29.810 Facial weakness; R47.81 Slurred speech; F11.20 Opioid dependence, uncomplicated; G89.4 Chronic pain syndrome; I10 Essential (primary) hypertension; R00.1 Bradycardia, unspecified; M47.896 Other spondylosis, lumbar region; F17.210 Nicotine dependence, cigarettes, uncomplicated; Z79.899 Other long term (current) drug therapy; Z88.0 Allergy status to penicillin; Z96.82 Presence of neurostimulator; Z98.1 Arthrodesis status
CPT/HCPCS: 36415; 51701; 70450; 70496; 71045; 72132; 80048; 80053; 80061; 81003; 82948; 83605; 83690; 83735; 84484; 85025; 85027; 85610; 85730; 87040; 87081; 87804; 92610; 93005; 93306; 93880; 96361; 96365; 96366; 96376; 97161; 97165; 97535; 99285; A9270; G0378; J0131; J7030

== ENCOUNTER 2019-08-09 11:31 | Outpatient (CLI) | payer MEDICARE, SELFPAY ==
--- NOTE | ~2019-08-09 | XR_ITS ---
XR chest 2V DATE: 08/09/2019 12:01 INDICATION: Preprocedure testing TECHNIQUE: PA and lateral views COMPARISON: 05/19/2019 portable AP chest FINDINGS: Mild cardiac magnet. Aortic calcification and mild unfolding. Two thoracic spinal leads are noted. No pulmonary infiltrate or consolidation, pleural effusion or pulmonary vascular congestion or pneum othorax is evident. Diffuse osteopenia. IMPRESSION: Cardiomegaly Aortic atherosclerosis No active pulmonary disease Reviewed, dictated and finalized at location A.
== END 2019-08-09 11:32 | disposition home or self-care (01) ==
PROVIDERS: PCP Emergency Medicine; Visit Provider Anesthesiology
DX: Z79.01 Long term (current) use of anticoagulants (principal); I25.10 Atherosclerotic heart disease of native coronary artery without angina pectoris; M54.16 Radiculopathy, lumbar region; R07.89 Other chest pain; I51.7 Cardiomegaly; I70.0 Atherosclerosis of aorta
CPT/HCPCS: 71046

== ENCOUNTER 2019-08-31 13:57 | Emergency (ER) | payer MEDICARE, SELFPAY ==
[2019-08-31] VITALS (18 sets, daily range): BP systolic 92–115; BP diastolic 38–65; PULSE 62–78; RESP 11–14; TEMP 36.7; O2SAT 95–100
--- NOTE | ~2019-08-31 | CT_ITS ---
EXAMINATION: CT brain wo con DATE: 08/31/2019 14:51 INDICATION: Head injury. TECHNIQUE: Computed tomography (CT) of the head was performed without intravenous contrast. The mA wa s adjusted according to patient size. Iterative reconstruction technique was employed. The dose-lengt h product was 605.33 mGy-cm. COMPARISON: Head CT 05/21/2019 FINDINGS: There are scattered areas of low attenuation in the cerebral white matter. There is an old lacunar infarct in right thalamus. There is no intracranial hemorrhage, acute infarction, or abnormal intracranial mass lesion. The ventricles are normal in size. There are likely changes of ocular lens replacement surgeries. There is mild mucosal thickening in the ethmoid sinuses. The mastoid air cell s are normal. IMPRESSION: 1. Old lacunar infarct in right thalamus. 2. Unchanged moderate nonspecific cerebral white matter disease, which likely represents chronic smal l vessel ischemic disease. Reviewed, dictated and finalized at location A. IMPRESSION: 1. Old lacunar infarct in right thalamus. 2. Unchanged moderate nonspecific cerebral white matter disease, which likely r epresents chronic small vessel ischemic disease.
--- NOTE | 2019-08-31 14:05 | ED.AMS ---
HPI - Altered Mental Status General Chief Complaint: Fall Stated Complaint: FALL/? OD Time Seen by Provider: 08/31/19 13:58 History of Present Illness HPI narrative: 74 yo female BIBEMS from home for AMS. Her son called 911 when he found her lying face down on the ground. EMS reports that she was lethargic, but fully oriented when aroused. Her son believes that she took too much pain medication and says that this is not the first time. The patient denies this, but says that she has no complaints and only came in to make her son happy. Related Data Home Medications Medication Instructions Recorded Confirmed gabapentin 300 mg PO BID 05/19/19 05/19/19 oxycodone 15 mg PO Q4-5H PRN 05/19/19 05/19/19 duloxetine 60 mg capsule,delayed 60 mg PO DAILY 05/29/19 release Allergies Allergy/AdvReac Type Severity Reaction Status Date / Time Penicillins Allergy Unknown Verified 04/13/10 13:14 [facility] Past Medical History Medical History Anxiety Arthritis Chronic narcotic dependence Chronic pain syndrome Secondary to degenerative disc disease and spinal stenosis. DDD (degenerative disc disease) HTN (hypertension) IBS (irritable bowel syndrome) Right carpal tunnel syndrome RLS (restless legs syndrome) Tobacco dependence Ulcer Surgical History Surgical History H/O section H/O foot surgery right x2 History of appendectomy History of cholecystectomy History of hysterectomy History of tonsillectomy Previous back surgery x2, lumbar area Social History Social History Social History: Patient lives in her own apartment [place]. She ambulates with a walker. Her primary care prior to Dr. Armond Cordero. She designates her Jesus, Jesus, as her surrogate decision-maker. She is listed as a full code. She smokes 1/2 pack of cigarettes per day. She has alcohol maybe every few months and in moderation. No drug use. Smoking packs per day: 1.5 Smoking cigarettes per day: 30.0 Smoking status: Current every day smoker Tobacco type: cigarettes Alcohol intake: unknown Drinks per week: 0 Substance use: never Substance use type: does not use Gender identity (if verbalized by the patient): Female Spiritual care concerns: No Agree to blood products: Yes Exam Const: General: no acute distress Nutritional Appearance: well nourished Orientation/consciousness: patient oriented x3 Other: lethargic HENMT: Head: normal to inspection Eyes: Other: pupils 3mm and sluggish Resp: Effort & Inspection: normal respiratory effort Auscultation: clear to auscultation bilaterally Cardio: Rate: regular rate Rhythm: regular rhythm GI: GI Palp: Yes Soft to palpation and No Tenderness to palpation present (GI) Skin: General skin exam: normal color Neuro: General: patient oriented x3, moves all extremities, no focal motor deficits and CN's II-XI intact bilaterally Speech: normal speech Course Vital Signs Vital signs: Vital Signs Temperature 36.7 C 08/31/19 14:05 Pulse Rate 73 08/31/19 14:05 Respiratory Rate 12 08/31/19 14:05 Blood Pressure 115/63 08/31/19 14:05 Pulse Oximetry 95 08/31/19 14:05 Temperature 36.7 C 08/31/19 14:05 Pulse Rate 78 08/31/19 18:29 Respiratory Rate 12 08/31/19 18:29 Blood Pressure 106/40 L 08/31/19 18:29 Pulse Oximetry 99 08/31/19 18:29 MDM - Altered Mental Status MDM Narrative Medical decision making narrative: CT obtained to ruleout acute injury was negative. After a period of observation she is more awake and continues to have no complaints. Gait is at baseline with walker. Discharge Plan Discharge Clinical Impression: Opiate misuse Patient Disposition: Home, Self-Care Condition: Stable Instructions: Narcotic Safety (ED) Prescriptions: No Action
== END 2019-08-31 18:25 | disposition home or self-care (01) ==
PROVIDERS: Emergency Provider Emergency Medicine; PCP Emergency Medicine
DX: F11.90 Opioid use, unspecified, uncomplicated (principal); M19.90 Unspecified osteoarthritis, unspecified site; G89.4 Chronic pain syndrome; I10 Essential (primary) hypertension; K58.9 Irritable bowel syndrome, unspecified; G25.81 Restless legs syndrome; F17.210 Nicotine dependence, cigarettes, uncomplicated
CPT/HCPCS: 70450; 99284

== ENCOUNTER → 2020-01-24 11:34 | Outpatient (CLI) | payer MEDICARE, SELFPAY ==
--- NOTE | ~2020-01-24 | XR_ITS ---
EXAMINATION: XR shoulder LT min 2V DATE: 01/24/2020 12:05 INDICATION: Left shoulder pain. TECHNIQUE: 4 views of left shoulder were obtained. COMPARISON: Lumbar spine CT 05/21/2019 FINDINGS: Bone alignment is normal. No fracture. There is mild osteoarthritis of glenohumeral joint a nd acromioclavicular joint. There is embolized methylmethacrylate in the lungs bilaterally from prior sacroplasty. IMPRESSION: 1. Polyarticular osteoarthritis. Reviewed, dictated and finalized at location A.
--- NOTE | ~2020-01-24 | CT_ITS ---
EXAMINATION:CT lung screening DATE: 01/24/2020 12:05 INDICATION: Personal history of tobacco dependence. Current smoker with 40 pack year history. TECHNIQUE: Computed tomography (CT) of the chest was performed without intravenous contrast. Automate d exposure control and iterative reconstruction technique were employed. The dose-length product (DLP ) was 91.60 mGy-cm. COMPARISON: Chest CT 06/13/2015 FINDINGS: There is mild emphysema. There is embolized methyl methacrylate in the lungs bilaterally. T here are patchy groundglass opacities in the upper lobes. Again seen is a 3 mm nodule in right upper lobe. A calcified right lung nodule is consistent with old granulomatous disease. There is mild atele ctasis in right middle lobe and lingula. No pleural effusion or pneumothorax. The heart size is ihsan l. No pericardial effusion. There is a 10 mm mass in left adrenal gland measuring low-attenuation, co nsistent with an adenoma. There is mild thoracic spondylosis. IMPRESSION: 1. Lung-RADS category 2: Benign appearance or behavior. Continue annual screening with noncontrast lo w-dose chest CT in 12 months. 2. New patchy groundglass opacities in the upper lobes, likely inflammation or infection. Reviewed, dictated and finalized at location A. IMPRESSION: 1. Lung-RADS category 2: Benign appearance or behavior. Continue annual screeni ng with noncontrast low-dose chest CT in 12 months. 2. New patchy groundglass opacities in the upper lobes, likely inflammation or infection.
== END ==
PROVIDERS: PCP Family Medicine; Visit Provider Family Medicine
DX: M19.012 Primary osteoarthritis, left shoulder (principal); Z78.9 Other specified health status; R91.8 Other nonspecific abnormal finding of lung field; Z87.891 Personal history of nicotine dependence
CPT/HCPCS: 73030; G0297

== ENCOUNTER 2020-03-15 20:24 | Emergency (ER) | payer MEDICARE, SELFPAY ==
--- NOTE | ~2020-03-15 | XR_ITS ---
EXAMINATION: XR lumbar spine 2-3V EXAM DATE: 03/15/2020 21:27 INDICATION: Bilateral low back pain radiating to both legs. Leg tingling. TECHNIQUE: Lumber spine frontal, lateral, lateral L5-S1 projections for interpretation. Correlation i s made to lumbar CT 05/21/2019. FINDINGS: There is moderate lower lumbar dextroscoliosis. Moderate disc disease L1-L3, moderate to se sharad at L3-4 and L4-5. Interbody fusion and posterior fusion hardware L5-S1. Bilateral sacral ala met hylmethacrylate injections likely treating insufficiency fractures. No hardware fracture. The vertebr al bodies are aligned in the AP dimension. Mild diffuse loss of vertebral body heights without acute fracture line identified. IMPRESSION: 1. Moderate dextroscoliosis. 2. Moderate to severe lumbar spondylosis. 3. Surgical changes. Reviewed, dictated and finalized at location . [employer]
[2020-03-15 20:26] VITALS: BP 140/70; PULSE 64; RESP 18; TEMP 36.6; O2SAT 99
[2020-03-15] MEDS: MORPHINE SULFATE (*CRX) 4 MG/ML INJ IM (21:34)
[2020-03-15 22:34] VITALS: BP 138/72; PULSE 68; RESP 18; O2SAT 99
--- NOTE | 2020-03-15 22:37 | ED.BACK ---
HPI - Back Pain/Injury General Chief Complaint: Back Pain/Injury Stated Complaint: back pain Time Seen by Provider: 03/15/20 20:27 History of Present Illness HPI Narrative: Patient is a 74-year-old female with history of chronic back pain who presents the ER with low back pain. Onset 5 days ago. No trauma. Is located in low back and radiates down both legs into the front of the thighs. No numbness or tingling to the thighs. No saddle anesthesia. No urinary or fecal retention/incontinence. Spoke with her PCP who started on prednisone 10 mg. She did this for 3 days but then contacted her chronic pain physician who started her on Medrol Dosepak. Her first dose was today. She is supposed to go in on 03/19 for a pain injection. She has no fevers or chills or sweats. No skin infections. Pain is worse with movement such as standing up/walking/using stairs. Related Data Home Medications Medication Instructions Recorded Confirmed gabapentin 300 mg PO BID 05/19/19 05/19/19 oxycodone 15 mg PO Q4-5H PRN 05/19/19 05/19/19 duloxetine 60 mg capsule,delayed 60 mg PO DAILY 05/29/19 release Allergies Allergy/AdvReac Type Severity Reaction Status Date / Time Penicillins Allergy Unknown Hives Verified 03/15/20 20:38 Review of Systems Review of Systems: All systems reviewed & are unremarkable except as noted in HPI and below Constitutional: Constitutional: Denies chills, Denies fever(s) and Denies weakness Respiratory: Respiratory: Denies cough and Denies dyspnea Gastrointestinal: Gastrointestinal: Denies abdominal pain, Denies nausea and Denies vomiting Musculoskeletal: Musculoskeletal: Reports back pain, Denies arthralgias, Denies joint swelling and Denies muscle cramps Neurologic: Denies focal weakness and Denies numbness [facility] Past Medical History Medical History (Updated 03/15/20 @ 22:46 by Oleg Cardona MD) Anxiety Arthritis Chronic narcotic dependence Chronic pain syndrome Secondary to degenerative disc disease and spinal stenosis. DDD (degenerative disc disease) HTN (hypertension) IBS (irritable bowel syndrome) Right carpal tunnel syndrome RLS (restless legs syndrome) Tobacco dependence Ulcer Surgical History Surgical History H/O section H/O foot surgery right x2 History of appendectomy History of cholecystectomy History of hysterectomy History of tonsillectomy Previous back surgery x2, lumbar area Family History Family History Mother Ulcerative colitis Social History Social History Social History: Patient lives in her own apartment [place]. She ambulates with a walker. Her primary care prior to Dr. Armond Cordero. She designates her Jesus, Jesus, as her surrogate decision-maker. She is listed as a full code. She smokes 1/2 pack of cigarettes per day. She has alcohol maybe every few months and in moderation. No drug use. Smoking packs per day: 1.5 Smoking cigarettes per day: 30.0 Smoking status: Current every day smoker Tobacco type: cigarettes Alcohol intake: unknown Drinks per week: 0 Substance use: never Substance use type: does not use Gender identity (if verbalized by the patient): Female Spiritual care concerns: No Agree to blood products: Yes Exam Narrative: Exam Narrative: GENERAL: Uncomfortable-appearing, well-nourished, and in no acute distress. HEAD: Normocephalic, atraumatic. EXTREMITIES: Normal range of motion. No edema. Back: Low back scar from previous surgery. No swelling or redness. No visible evidence of trauma to the back. Most tender over bilateral SI regions. SKIN: Warm, dry, no rash. NEURO: Alert and oriented x3. PSYCH: Normal mood and affect. Course Course Emergency Course: Pain improving with morphine. Patient reports she is nearly out of h
== END 2020-03-15 23:27 | disposition home or self-care (01) ==
PROVIDERS: Emergency Provider Emergency Medicine; PCP Family Medicine
DX: M54.42 Lumbago with sciatica, left side (principal); M54.41 Lumbago with sciatica, right side; M19.90 Unspecified osteoarthritis, unspecified site; K58.9 Irritable bowel syndrome, unspecified; G25.81 Restless legs syndrome; I10 Essential (primary) hypertension; F17.210 Nicotine dependence, cigarettes, uncomplicated; M47.816 Spondylosis without myelopathy or radiculopathy, lumbar region
CPT/HCPCS: 72100; 96372; 99283; J2270